=== PATIENT | male | born 1990 | race American Indian/Alaskan Native ===

== ENCOUNTER 2016-10-14 22:42 | Emergency (ER) | payer SELFPAY | END 2016-10-15 00:50 | disposition left against medical advice (07) | LOC: ED 22:42 | DX: R05 Cough (principal); M79.1 Myalgia; Z53.21 Procedure and treatment not carried out due to patient leaving prior to being seen by health care provider ==

== ENCOUNTER 2020-09-01 07:16 | Emergency (ER) | payer SELFPAY ==
[2020-09-01 07:43] VITALS: BP 134/85
--- NOTE | 2020-09-01 08:19 | XRay Report ---
CHEST PA AND LATERAL VIEWS INDICATION: Chest Pain. COMPARISON: 09/02/2018. FINDINGS: Support devices: None. Heart: Within normal limits. Lungs/Pleura: No acute pulmonary or pleural findings. IMPRESSION: 1. No acute findings. Signer Name: Long Orr MD Signed: 09/01/2020 8:14 AM Workstation Name: [id number]
[2020-09-01] MEDS ORDERED: FAMOTIDINE 20 MG TAB PO ONE (09:01)
[2020-09-01] MEDS ORDERED: ALUM-MAG HYDROXIDE-SIMETHICONE 200-200-20MG/5ML ORAL LIQD 30 ML PO ONE (09:01)
--- NOTE | 2020-09-01 09:06 | Emergency Department Report ---
ED Chest Pain HPI - General Chief Complaint: Chest Pain Stated Complaint: CHEST PAIN Time Seen by Provider: 09/01/20 08:50 Source: patient Mode of arrival: Ambulatory Limitations: No Limitations - History of Present Illness Initial Comments: 30-year-old male with a past medical history of tobacco use but otherwise no significant pmhx presents to the ER today complaining of left-sided chest pain. Patient states that his pain started about a week ago. He describes as a burning pain which has been intermittent in nature and seems to be worse when he breathes. He states that the pain radiates into his left upper quadrant at times. He denies any cough, wheezing, shortness of breath, fever, chills or URI symptoms. He denies any associated nausea, vomiting or diaphoresis. He reports no leg pain or swelling. He states that he drinks occasionally. He denies similar symptoms in the past. He denies any known family hx of CAD/[place]. 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 He does admit to drinking lots of caffeine daily. MD Complaint: chest pain -: week(s) (1) Severity scale (0 -10): 5 Quality: other (Burning) - Related Data Previous Rx's Medication Instructions Recorded Last Taken Type Cetirizine HCl [ZyrTEC] 10 mg PO QDAY #20 capsule 09/02/18 Unknown Rx Dextromethorphan Polistirex 30 mg PO Q12H 7 Days #1 bottle 09/02/18 Unknown Rx [Delsym] Famotidine [Pepcid] 40 mg PO QHS #30 tablet 09/01/20 Unknown Rx Pantoprazole [Protonix] 40 mg PO QDAY #30 tablet 09/01/20 Unknown Rx Allergies Allergy/AdvReac Type Severity Reaction Status Date / Time No Known Allergies Allergy Unverified 09/02/18 20:00 Heart Score - HEART Score History: Slightly suspicious EKG: Non-specific Age: < 45 Risk factors: 1-2 risk factors Troponin: < normal limit HEART Score: 2 - Critical Actions Critical Actions: 0-3 pts:0.9-1.7%risk of adverse cardiac event.Candidate for discharge ED Review of Systems ROS: Stated complaint: CHEST PAIN Other details as noted in HPI Comment: All other systems reviewed and negative Constitutional: denies: chills, fever Respiratory: denies: cough, shortness of breath, SOB with exertion, SOB at rest, wheezing Cardiovascular: chest pain Gastrointestinal: denies: abdominal pain, nausea, diarrhea Genitourinary: denies: urgency, dysuria Musculoskeletal: denies: back pain, joint swelling, arthralgia Neurological: denies: headache, weakness, paresthesias Psychiatric: denies: anxiety, depression Hematological/Lymphatic: denies: easy bleeding, easy bruising ED Past Medical Hx - Past Medical History Previous Medical History?: Yes Additional medical history: bronchitis - Surgical History Past Surgical History?: No - Social History Smoking Status: Current Every Day Smoker Substance Use Type: Alcohol - Medications Home Medications: Home Medications Medication Instructions Recorded Confirmed Last Taken Type Cetirizine HCl [ZyrTEC] 10 mg PO QDAY #20 capsule 09/02/18 Unknown Rx Dextromethorphan Polistirex 30 mg PO Q12H 7 Days #1 bottle 09/02/18 Unknown Rx [Delsym] Famotidine [Pepcid] 40 mg PO QHS #30 tablet 09/01/20 Unknown Rx Pantoprazole [Protonix] 40 mg PO QDAY #30 tablet 09/01/20 Unknown Rx ED Physical Exam - General Limitations: No Limitations General appearance: alert, in no apparent distress - Head Head exam: Present: atraumatic, normocephalic - Eye Eye exam: Present: normal appearance - ENT ENT exam: Present: normal exam, mucous membranes moist - Neck Neck exam: Present: normal inspection - Respiratory Respiratory exam: Present: normal lung sounds bilaterally. Absent: respiratory distress - Cardiovascular Cardiovascular Exam: Present: regular rate, normal rhythm, normal heart sounds - GI/Abdominal GI/Abdominal exam: Present: soft. Absent: distended, tenderness - Neurological Exam Neurological exam: Present: alert, oriented X3, CN II-XII intact, normal gait - Psychiatric Psychiatric exam: Present: normal affect, normal mood - Skin Skin exam: Present: intact ED Course Vital Signs 09/01/20 07:40 Temperature 97.9 F Pulse Rate 67 Respiratory 17 Rate Blood Pressure 134/85 O2 Sat by Pulse 100 Oximetry ED Medical Decision Making - Lab Data Result diagrams: 09/01/20 09:13 09/01/20 09:13 - EKG Data Rate: bradycardia (58) - EKG Data Interpretation: nonspecific ST-T wave kika (ST elevation probably early normal repol pattern) - Radiology Data Radiology results: report reviewed - Medical Decision Making 30-year-old male with a past medical history of tobacco use and no other significant past medical history presents to the ER today complaining of a burning pain to the left side of his chest. Chest x-ray shows nothing acute. Labs reviewed and unremarkable including normal troponin and a normal D-dimer. EKG shows no acute ischemic changes, STEMI or significant dysrhythmia. Patient is well-appearing, nontoxic, and is not in any acute distress. Vital signs reviewed and stable. He states that his pain did go from 5-2 after receiving Pepcid and Maalox. He has heart score of 2 and PERC score 0. Patient's history, exam and diagnostic testing and current condition does not suggest that he is having acute [place], significant dysrhythmia, unstable angina, esophageal perforation, PE, aortic dissection, severe pneumonia, pneumothorax, sepsis or significant pathology warranting further testing, continued ED treatment, admission or cardiology's consultation at this time. Discussed lab results, imaging results and suspected diagnosis with patient. Discussed treatment plan with patient. Patient expressed understanding of instructions and agree with plan. Patient stable at time of discharge. Critical care attestation.: If time is entered above; I have spent that time in minutes in the direct care of this critically ill patient, excluding procedure time. ED Disposition Clinical Impression: Atypical chest pain, Gastritis Disposition: - TO HOME OR SELFCARE Is pt being admited?: No Does the pt Need Aspirin: No Condition: Stable Instructions: Chest Pain (ED), Nonspecific Chest Pain, Adult, [id number], Gastritis, Adult Additional Instructions: Take the pepcid and the protonix as prescribed for pain. I would recommend reducing your caffeine intake daily. Also try to avoid acidic foods, spicy food s, ETOH and NSAIDs for at least 2 weeks. I recommend follow u p with PCP. REturn to ED if your symptoms worsens or changes. Prescriptions: Famotidine [Pepcid] 40 mg PO QHS #30 tablet Pantoprazole [Protonix] 40 mg PO QDAY #30 tablet Referrals: JG DIAZ MD [Staff Physician] - 3-5 Days Forms: Work/School Release Form(ED) Time of Disposition: 11:29
[2020-09-01 09:52] LABS: Basophils % (Auto) 0.6 % (0.0-1.8); Eosinophils # (Auto) 0.3 K/mm3 (0.0-0.4); Eosinophils % (Auto) 5.4 % (0.0-4.3); Hematocrit 41.1 % (35.5-45.6); Hemoglobin 13.5 gm/dl (11.8-15.2); Lymphocytes # (Auto) 1.9 K/mm3 (1.2-5.4); Lymphocytes % (Auto) 31.9 % (13.4-35.0); Mean Corpuscular HGB Conc 33 % (32-34); Mean Corpuscular Volume 75 fl (84-94); Monocytes # (Auto) 0.5 K/mm3 (0.0-0.8); Monocytes % (Auto) 8.6 % (0.0-7.3); Platelet Count 235 K/mm3 (140-440); Red Blood Count 5.51 M/mm3 (3.65-5.03); Red Cell Distribution Width 14.9 % (13.2-15.2)
[2020-09-01 10:27] LABS: Alanine Aminotransferase 10 units/L (7-56); Albumin 3.8 g/dL (3.9-5); BUN/Creatinine Ratio 11; Blood Urea Nitrogen 12 mg/dL (9-20); Calcium 9.4 mg/dL (8.4-10.2); Hemolysis Index 5
== END 2020-09-01 11:39 | disposition home or self-care (01) ==
LOC: ED 07:16
DX: R07.89 Other chest pain (principal); K29.70 Gastritis, unspecified, without bleeding; F17.200 Nicotine dependence, unspecified, uncomplicated; Z79.899 Other long term (current) drug therapy
CPT/HCPCS: 36415; 71046; 80053; 83690; 84484; 85025; 85379; 93005